=== PATIENT | male | born 1950 | race Caucasian/White ===

== ENCOUNTER → 2017-01-13 | Outpatient (CLI) | payer OTHER | LOC: FIMAGING 06:49 | PROVIDERS: ATTEND Physician Assistant | DX: M43.17 Spondylolisthesis, lumbosacral region (principal); M48.06 Spinal stenosis, lumbar region; M51.36 Other intervertebral disc degeneration, lumbar region ==

== ENCOUNTER 2017-10-01 21:32 | Observation (INO) | payer OTHER ==
--- NOTE | 2017-10-01 22:14 | EDPHY ---
H & P Stated Complaint: Chest Discomfort Time Seen by Provider: 10/01/17 21:50 HPI/ROS: Chief Complaint: Chest pain HPI: 67-year-old male with a history of coronary artery disease status post stent placement in 2003. Patient had left-sided chest pain which began at about 7 o'clock this evening. Is described as a rapid onset aching pain in the left side is chest which last few seconds but after that there is a dull persistent pain. This happened several times. He took a nitroglycerin with complete resolution of the pain. Nose associated shortness of breath. At worst pain is a 3/10. He had a similar episode was seen here about 3 weeks ago. He called to arrange for an outpatient stress test but is not able to get in until October. His executive candidate developer was Dr. Lopes and has not followed up with any executive candidate developer in the last several years. No leg pain or swelling. No fevers or chills. No cough. No nausea or vomiting. He is currently pain-free without complaint. ROS: 10 point Review of Systems is negative except as noted in the HPI. PMH: Hypertension, coronary artery disease Social History: Past smoking, no alcohol, no recreational drug use Family History: non-contributory Physical Exam: Gen: Awake, Alert, No Distress HEENT: Nose: no rhinorrhea Eyes: PERRLA, EOMI Mouth: Moist mucosa Neck: Supple, no JVD Chest: nontender, lungs clear to auscultation Heart: S1, S2 normal, no murmur Abd: Soft, non-tender, no guarding Back: no CVA tenderness, no midline tenderness Ext: no edema, non-tender Skin: no rash Neuro: CN II-XII intact, Sensation grossly intact, Strength 5/5 in bilateral upper and lower extremities - Personal History Current Tetanus Diphtheria and Acellular Pertussis (TDAP): Yes Tetanus Vaccine Date: 2002 - Medical/Surgical History Hx Asthma: No Hx Chronic Respiratory Disease: No Hx Diabetes: No Hx Cardiac Disease: Yes Hx Renal Disease: No Hx Cirrhosis: No Hx Alcoholism: No Hx HIV/AIDS: No Hx Splenectomy or Spleen Trauma: No Other PMH: CML. cardiac stents 2001, 2003. left knee sx 2007. HTN, hyperlipidemia. appy. tonsils - Social History Smoking Status: Former smoker Constitutional: Initial Vital Signs Temperature (C) 36.8 C 10/01/17 21:34 Heart Rate 74 10/01/17 21:34 Respiratory Rate 18 10/01/17 21:34 Blood Pressure 155/88 H 10/01/17 21:34 O2 Sat (%) 95 10/01/17 21:34 O2 Delivery Mode Room Air Allergies/Adverse Reactions: No Known Allergies Allergy (Verified 06/03/16 09:16) Home Medications: Medication Instructions Recorded Metoprolol Succinate [Toprol Xl 200 mg PO DAILY 09/09/11 200 mg] Aspirin 81mg (OTC) 03/25/15 Atorvastatin Calcium 03/25/15 Gleevec 100 mg (RX) 03/25/15 Amlodipine Besylate 06/03/16 Losartan Potassium 06/03/16 Medical Decision Making - Diagnostics EKG Interpretation: ECG time 10:04 p.m., sinus rhythm with a rate of 59, normal axis, normal intervals, no acute ST or T-wave changes. Impression: Normal ECG. Imaging Results: Imaging Impressions Chest X-Ray 10/01/17 21:47 Impression: Normal chest. ED Course/Re-evaluation: 59-year-old male with a known coronary artery disease history presenting with chest pain which was relieved with nitroglycerin. He had similar episode 3 weeks ago and ruled out at that time. He has been unable to get an appointment for stress test. Given his risk factors and his presentation the plan will be to admit for cardiac rule out and likely stress test in the morning. I have discussed with Dr. Mayers, hospitalist. He will admit to his service for further evaluation. - Data Points Laboratory Results: Laboratory Results 10/01/17 22:47 10/01/17 22:47 10/01/17 10/01/17 22:47 22:47 WBC 4.08 10^3/uL 10^3/uL (3.80-9.50) RBC 4.34 10^6/uL L 10^6/uL (4.40-6.38) Hgb 13.8 g/dL g/dL (13.7-17.5) Hct 39.3 % L % (40.0-51.0) MCV 90.6 fL fL (81.5-99.8) MCH 31.8 pg pg (27.9-34.1) MCHC 35.1 g/dL g/dL (32.4-36.7) RDW 12.2 % % (11.5-15.2) Plt Count 181 10^3/uL 10^3/uL (150-400) MPV 11.1 fL fL (8.7-11.7) Neut % (Auto) 42.1 % % (39.3-74.2) Lymph % (Auto) 43.1 % % (15.0-45.0) [place] % (Auto) 11.5 % % (4.5-13.0) Eos % (Auto) 2.9 % % (0.6-7.6) Baso % (Auto) 0.2 % L % (0.3-1.7) Nucleat RBC Rel Count 0.0 % % (0.0-0.2) Absolute Neuts (auto) 1.71 10^3/uL 10^3/uL (1.70-6.50) Absolute Lymphs (auto) 1.76 10^3/uL 10^3/uL (1.00-3.00) Absolute Monos (auto) 0.47 10^3/uL 10^3/uL (0.30-0.80) Absolute Eos (auto) 0.12 10^3/uL 10^3/uL (0.03-0.40) Absolute Basos (auto) 0.01 10^3/uL L 10^3/uL (0.02-0.10) Absolute Nucleated RBC 0.00 10^3/uL 10^3/uL (0-0.01) Immature Gran % 0.2 % % (0.0-1.1) Immature Gran # 0.01 10^3/uL 10^3/uL (0.00-0.10) Sodium 139 mEq/L mEq/L (135-145) Potassium 4.1 mEq/L mEq/L (3.5-5.2) Chloride 103 mEq/L mEq/L (97-110) Carbon Dioxide 26 mEq/l mEq/l (22-31) Anion Gap 10 mEq/L mEq/L (8-16) BUN 10 mg/dL mg/dL (7-23) Creatinine 1.0 mg/dL mg/dL (0.7-1.3) Estimated GFR > 60 Glucose 119 mg/dL H mg/dL (70-100) Calcium 9.4 mg/dL mg/dL (8.5-10.4) Troponin I < 0.012 ng/mL ng/mL (0.000-0.034) Departure - Departure Disposition: [facility] Inpatient Acute Clinical Impression: Chest pain Condition: Fair
--- NOTE | 2017-10-01 23:03 | CPEKG ---
Heart Rate: 59 RR Interval: 1017 P-R Interval: 200 QRSD Interval: 84 QT Interval: 396 QTC Interval: 393 P Hills: -20 QRS Hills: 7 T Wave [place]: 7 EKG Severity - NORMAL ECG - EKG Impression: SINUS RHYTHM Electronically Signed By: Jose Goldman 02-Oct-2017 05:42:08
[2017-10-01 23:07] LABS: PLATELET COUNT 181 10^3/uL (150-400)
[2017-10-01] MEDS ORDERED: ONDANSETRON DISINTEGRATING 4 MG TAB PO PRN (23:17)
[2017-10-01] MEDS ORDERED: ACETAMINOPHEN 325 MG TAB PO PRN (23:17)
[2017-10-01] MEDS ORDERED: ONDANSETRON 4 MG/2 ML VIAL IVP PRN (23:17)
[2017-10-02 04:51] LABS: PLATELET COUNT 172 10^3/uL (150-400)
--- NOTE | 2017-10-02 06:34 | PDGENHP ---
History and Physical - Chief Complaint Chest pain - History of Present Illness 67 yo M w/ hx of CAD and CML presents w/ chest pain. Patient noticed "chest spasms" initially 3 weeks ago. These were left sided and only lasted a few seconds. The pain is not associated with exertion or rest and has no other associated symptoms. He again experienced this same last night, but it lasted a bit longer than usual, so he presented for evaluation. He had an outpatient stress already ordered for October 13 to evaluate these same symptoms. History Information - Allergies/Home Medication List Allergies/Adverse Reactions: No Known Allergies Allergy (Verified 06/03/16 09:16) Home Medications: Metoprolol Succinate [Toprol Xl 200 mg] 200 mg PO DAILY 09/09/11 [Last Taken 07/21 20:00] Aspirin 81mg (OTC) 03/25/15 [Last Taken Unknown] Atorvastatin Calcium 03/25/15 [Last Taken Unknown] Gleevec 100 mg (RX) 03/25/15 [Last Taken Unknown] Amlodipine Besylate 06/03/16 [Last Taken Unknown] Losartan Potassium 06/03/16 [Last Taken Unknown] I have personally reviewed and updated: family history, medical history - Past Medical History coronary artery disease Additional medical history: CML - Family History Positive for: CAD - Social History Smoking Status: Former smoker Review of Systems Review of Systems: ROS: 10pt was reviewed & negative except for what was stated in HPI & below Physical Exam Physical Exam: Temp Pulse Resp BP Pulse Ox 36.5 C 63 18 130/78 H 91 L 10/02/17 04:00 10/02/17 04:00 10/02/17 04:00 10/02/17 04:00 10/02/17 04:00 Constitutional: no apparent distress, not in pain Eyes: PERRL, EOMI Ears, Nose, Mouth, Throat: moist mucous membranes, no oral mucosal ulcers Cardiovascular: regular rate and rhythym, no murmur, rub, or gallop Respiratory: no respiratory distress, no rales or rhonchi Gastrointestinal: normoactive bowel sounds, soft, non-tender abdomen Skin: warm, normal color Musculoskeletal: full muscle strength, no muscle tenderness Neurologic: AAOx3, CN II-XII Intact Psychiatric: interacting appropriately, not anxious Lab Data & Imaging Review 10/02/17 03:47 10/02/17 03:47 WBC 4.01 10^3/uL (3.80-9.50) 10/02/17 03:47 RBC 4.64 10^6/uL (4.40-6.38) 10/02/17 03:47 Hgb 14.7 g/dL (13.7-17.5) 10/02/17 03:47 Hct 42.4 % (40.0-51.0) 10/02/17 03:47 MCV 91.4 fL (81.5-99.8) 10/02/17 03:47 MCH 31.7 pg (27.9-34.1) 10/02/17 03:47 MCHC 34.7 g/dL (32.4-36.7) 10/02/17 03:47 RDW 12.2 % (11.5-15.2) 10/02/17 03:47 Plt Count 172 10^3/uL (150-400) 10/02/17 03:47 MPV 10.9 fL (8.7-11.7) 10/02/17 03:47 Neut % (Auto) 47.0 % (39.3-74.2) 10/02/17 03:47 Lymph % (Auto) 38.4 % (15.0-45.0) 10/02/17 03:47 [place] % (Auto) 11.2 % (4.5-13.0) 10/02/17 03:47 Eos % (Auto) 3.2 % (0.6-7.6) 10/02/17 03:47 Baso % (Auto) 0.2 % (0.3-1.7) L 10/02/17 03:47 Nucleat RBC Rel Count 0.0 % (0.0-0.2) 10/02/17 03:47 Absolute Neuts (auto) 1.88 10^3/uL (1.70-6.50) 10/02/17 03:47 Absolute Lymphs (auto) 1.54 10^3/uL (1.00-3.00) 10/02/17 03:47 Absolute Monos (auto) 0.45 10^3/uL (0.30-0.80) 10/02/17 03:47 Absolute Eos (auto) 0.13 10^3/uL (0.03-0.40) 10/02/17 03:47 Absolute Basos (auto) 0.01 10^3/uL (0.02-0.10) L 10/02/17 03:47 Absolute Nucleated RBC 0.00 10^3/uL (0-0.01) 10/02/17 03:47 Immature Gran % 0.0 % (0.0-1.1) 10/02/17 03:47 Immature Gran # 0.00 10^3/uL (0.00-0.10) 10/02/17 03:47 Sodium 143 mEq/L (135-145) 10/02/17 03:47 Potassium 4.3 mEq/L (3.5-5.2) 10/02/17 03:47 Chloride 107 mEq/L (97-110) 10/02/17 03:47 Carbon Dioxide 27 mEq/l (22-31) 10/02/17 03:47 Anion Gap 9 mEq/L (8-16) 10/02/17 03:47 BUN 10 mg/dL (7-23) 10/02/17 03:47 Creatinine 1.0 mg/dL (0.7-1.3) 10/02/17 03:47 Estimated GFR > 60 10/02/17 03:47 Glucose 115 mg/dL (70-100) H 10/02/17 03:47 Calcium 9.3 mg/dL (8.5-10.4) 10/02/17 03:47 Phosphorus 3.7 mg/dL (2.5-4.5) 10/02/17 03:47 Magnesium 2.1 mg/dL (1.6-2.3) 10/02/17 03:47 Troponin I < 0.012 ng/mL (0.000-0.034) 10/02/17 03:47 Imaging Review: Allergies Imaging Impressions Chest X-Ray 10/01/17 21:47 Impression: Normal chest. Visualized and Interpreted EKG results: Yes EKG Interpretation: Positive for: normal sinsus rhythm, other (No signs of acute ischemia) Assessment & Plan Assessment: 67 yo M w/ hx of CAD and CML presents w/ atypical chest pain. Plan: 1. Atypical chest pain - Brief twinges of left sided chest pain not associated with exertion. Initial troponin and ECG without signs of ongoing ischemia. Patient is currently chest pain free. - Admit to PCU for observation - Monitor on telemetry, trend cardiac enzymes - Stress test ordered for risk stratification (last BB 24 hours ago) 2. Hx CAD - S/p stenting in 2001 and 2003[address] Follow[address] with Dr. Davidson and previously Dr. Lopes. Continue home medications. 3. CML - Well controlled on Gleevec. Diet - NPO pending stress Code - Full Ppx - LMWH Dispo - Admit under observation status
[2017-10-02] MEDS ORDERED: HYDROCHLOROTHIAZIDE PO SCH (09:00)
[2017-10-02] MEDS ORDERED: LOSARTAN POTASSIUM 50 MG TAB PO SCH (09:00)
[2017-10-02] MEDS ORDERED: LOSARTAN PO SCH (09:00)
[2017-10-02] MEDS ORDERED: [UNRECOGNIZED DRUG - OTHER] PO SCH (09:00)
[2017-10-02] MEDS ORDERED: IMATINIB MESYLATE 100 MG TAB PO SCH (09:00)
[2017-10-02] MEDS ORDERED: ENOXAPARIN 40 MG/0.4 ML SYR SC SCH (09:00)
[2017-10-02] MEDS ORDERED: HYDROCHLOROTHIAZIDE 12.5 MG CAP PO SCH (09:00)
--- NOTE | 2017-10-02 09:59 | ASMTCASEMG ---
Living Arrangements What is your living Answers: Alone arrangement? Who do you live with? Type Of Residence What kind of residence do Answers: House you live in? Discharge Plan Comments Coordination Status Comments Notes: Pt is a 67 y/o man admitted for chest pain. Pt is having a stress test today. If the stress test comes back negative pt will most likely will be able to d/c independent. No therapies ordered at this time. CM available for changes. Plan: Independent Date Signed: 10/02/2017 09:58 AM Electronically Signed By:LEAH Maki
--- NOTE | 2017-10-02 10:44 | CPR ---
[f rep st] NONINVASIVE CARDIAC PROCEDURE REPORT PROCEDURE: Treadmill stress test. REASON FOR TEST: 1. Chest discomfort. 2. Known coronary artery disease. Resting heart rate 77, resting blood pressure 144/80. EKG shows regular sinus rhythm with Anterior Q waves, and no arrhythmias. STRESS PORTION: He was exercised according to the Michael protocol for a total of 3 minutes and 47 seconds. His peak heart rate was 136. MET level reached 5.1. Peak blood pressure 200/90. He was short of breath during the peak exercise. He had no chest discomfort. An occasional PVC was noted. He had one couplet. RECOVERY: He did spontaneously recover with a resting blood pressure of 140/80 , resting heart rate 92. No PVCs during recovery were noted. There were no EKG changes. CONCLUSION: He reached his maximal predicted heart rate at 85%. He does have poor exercise tolerance. Inconclusive test due to SOB, and poor exercise tolerance. At this time, he is stable for return to his patient room. Recommend Nuclear Stress test. /[id number]/MODL MTDD
[2017-10-02] MEDS ORDERED: REGADENOSON 0.4 MG/5 ML SYR IVP ONE (11:44)
--- NOTE | 2017-10-02 13:25 | CPR ---
[f rep st] NONINVASIVE CARDIAC PROCEDURE REPORT DATE OF PROCEDURE: 10/02/2017 PROCEDURE: Lexiscan nuclear stress test. REASONS FOR TEST: 1. Chest discomfort. 2. Known coronary artery disease. 3. Abnormal exercise treadmill stress test. Resting EKG shows a regular sinus rhythm with a rate of 61. Anterior Q-wave noted. T-wave inversion in inferior lead III. Resting blood pressure 149/86, resting heart rate 61, oxygen saturation 91%. EXERCISE PORTION: Lexiscan stress test. Lexiscan was injected rapidly, followed by saline flush. Cardiolite was then injected, followed by s alex flush. He did note shortness of breath after the injection. Blood pressure 162/94, peak heart rate 89, oxygen saturation 95%. His symptoms did start subsiding with onset of recovery. EKG remai jenny stable. Recovery blood pressure 147/92, heart rate 72, oxygen saturation 95%. There were no EKG changes. His shortness of breath subsided with the conclusion of the test. At this time, he rosalva hooks is stable for nuclear imaging. /[id number]/MODL
[2017-10-02 16:47] VITALS: BP 126/83
--- NOTE | 2017-10-02 19:47 | GDS ---
[f rep st] DISCHARGE SUMMARY DISCHARGE DIAGNOSES: 1. Chest pain, suspect musculoskeletal. 2. CML. 3. Coronary artery disease, status post stents. HISTORY: The patient is a 67-year-old male with a history of chest spasms for 3 weeks, left-sided, l asting a few seconds at a time. He sought care as an outpatient and had a stress test scheduled with Dr. Davidson in the near future. D-dimer done as an outpatient was negative. He presented to the emerg ency room when this similar chest pain episode lasted a little longer than it had in the past and thi s prompted a more urgent evaluation. He was admitted under observation. Serial troponins were negative. He initially started with a nabila dard exercise treadmill test. However, he was only able to go 3 minutes and 40 seconds with signific ant shortness of breath. Cardiology recommended following this up with a nuclear scan, which was per formed and was negative for reversible ischemia. He was subsequently discharged home. DISCHARGE MEDICATIONS: Please see computer record for full detailed list. There were no new medicat ions given at the time of hospital discharge. ADDITIONAL DISCHARGE INSTRUCTIONS: Follow up with primary care. /[id number]/MODL
[2017-10-02] MEDS ORDERED: PANTOPRAZOLE SODIUM 40 MG TAB PO SCH (21:00)
[2017-10-02] MEDS ORDERED: NON-FORMULARY NEW DRUG (Omeprazole [Omeprazole] 20 MG) PO SCH (21:00)
[2017-10-02] MEDS ORDERED: MAGNESIUM OXIDE 400 MG TAB PO SCH (21:00)
[2017-10-02] MEDS ORDERED: ASPIRIN 81 MG CHEWABLE TAB PO SCH (21:00)
[2017-10-02] MEDS ORDERED: ATORVASTATIN CALCIUM 40 MG TAB PO SCH (21:00)
== END 2017-10-02 17:52 | disposition home or self-care (01) ==
LOC: F2W 10-02 01:24
PROVIDERS: ADMIT Student in an Organized Health Care Education/Training Program; ATTEND Internal Medicine
DX: R07.9 Chest pain, unspecified (principal); C92.11 Chronic myeloid leukemia, BCR/ABL-positive, in remission; R94.39 Abnormal result of other cardiovascular function study; I25.10 Atherosclerotic heart disease of native coronary artery without angina pectoris; I10 Essential (primary) hypertension; E78.5 Hyperlipidemia, unspecified; Z79.82 Long term (current) use of aspirin; Z87.891 Personal history of nicotine dependence; Z95.5 Presence of coronary angioplasty implant and graft
CPT/HCPCS: 71046; 78452; 93005; 93017; 99285; A9500; G0378; J2785

== ENCOUNTER → 2018-10-16 | Outpatient (CLI) | payer OTHER | LOC: FIMAGING 11:42 | PROVIDERS: ATTEND Physical Medicine & Rehabilitation | DX: M47.896 Other spondylosis, lumbar region (principal); M43.16 Spondylolisthesis, lumbar region; M48.07 Spinal stenosis, lumbosacral region ==